=== PATIENT | female | born 1960 | race Caucasian/White ===

== ENCOUNTER → 2019-10-15 | Day surgery (SDC) | payer MEDICAID ==
[~2019-10-15] MED LIST: NORCO 5-325 TA1 EAC1 PO; TRILEPTAL150 MG PO
--- NOTE | ~2019-10-15 | OP ---
[facility] [address] [place] [address] OPERATIVE REPORT Name: CHANDNI VAZQUEZ Room: [facility]#: [id number] Admission: 10/15/19 Attend Phys: Joseph Amaya Discharge: Date of : 58 Report #: [id number] THIS REPORT FOR: //name// cc: OSCAR - Family physician unknown FAM - Family physician unknown ~ THIS REPORT FOR: //name// CC: OSCAR unknown Joseph Amaya DATE OF SERVICE: 10/15/2019 PREOPERATIVE DIAGNOSIS: Perirectal abscess. POSTOPERATIVE DIAGNOSIS: Perirectal abscess. OPERATION: Incision and drainage of ischiorectal abscess. SURGEON: Joseph Amaya MD ANESTHESIA: General. ESTIMATED BLOOD LOSS: Minimal. SPECIMEN: None. DESCRIPTION OF PROCEDURE: After informed consent was obtained, the patient was brought to the operating room and placed supine. SCDs were placed and working, preoperative antibiotics were administered, general anesthesia was induced. The patient was placed in the lithotomy position. The area was then prepped and draped in the usual sterile fashion. A cautery was used to incise the area. This was anterior and on the left side approximately 2 cm from the anal verge. This was incised and a copious amount of theodore pus was expressed. The cavity was then copiously irrigated with normal saline and it was packed with sterile gauze. Sterile dressings were applied. COMPLICATIONS: None. DISPOSITION: The patient was taken to recovery in satisfactory condition. By: [id number] Amaya MD /nt
[2019-10-15 08:00] LABS: CALCIUM 8.1 mg/dL (8.5-10.1); CREATININE 0.6 mg/dL (0.6-1.3); POTASSIUM 3.9 mmol/L (3.5-5.1)
--- NOTE | 2019-10-15 09:15 | EKG ---
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
== END | disposition home or self-care (01) ==
LOC: M.SUR 06:19
PROVIDERS: Surgery
DX: K61.1 Rectal abscess (principal); F41.9 Anxiety disorder, unspecified; Z79.899 Other long term (current) drug therapy